=== PATIENT | male | born 1960 | race Caucasian/White ===

== ENCOUNTER 2019-04-03 05:14 | Inpatient (IN) | payer OTHER ==
[~2019-04-03] VITALS: Ht 185.4 cm; Wt 95.0 kg
[2019-04-03 13:08] VITALS: Ht 185.4 cm; Wt 95.0 kg
[2019-04-03 13:27] VITALS: BP 130/76; PULSE 73; RESP 20
[2019-04-03] MEDS ORDERED: morphine 2 MG INJ IV STA (16:13)
[2019-04-03] MEDS ORDERED: DOCUSATE SODIUM 100 MG CAP PO PRN (17:00)
[2019-04-03] MEDS ORDERED: HYDROCODONE/APAP (5/325) TAB PO PRN (17:00)
[2019-04-03] MEDS ORDERED: NACL 0.9% 3 ML SYG IV SCH (17:00)
[2019-04-03] MEDS ORDERED: ACETAMINOPHEN 325 MG TAB PO PRN (17:00)
[2019-04-03] MEDS ORDERED: ZOLPIDEM 5 MG TAB PO PRN (17:00)
[2019-04-03] MEDS ORDERED: ONDANSETRON 4 MG INJ IV PRN (17:00)
[2019-04-03] MEDS ORDERED: morphine 2 MG INJ IV PRN (17:00)
--- NOTE | 2019-04-03 17:04 | HP ---
Date/Time of Note Date/Time of Note DATE: 04/03/19 TIME: 17:01 Assessment/Plan VTE Prophylaxis Pharmacological prophylaxis: NA/contraindicated Pharm contraindication: low risk/ambulating Lines/Catheters IV C[facility]ter Type [facility]from [facility] Saline Lock Assessment/Plan Hospital Course 1. Nephrolithiasis CT abdomen outside hospital showed a 5 mm stone at the right UVJ Symptoms have currently improved with conservative care Continue IV fluids and have added Flomax Urology consultation obtained Follow-up on KUB 2. Leukocytosis likely secondary to UTI Recheck UA Rocephin IV Prophylaxis: Ambulation HPI/ROS Admit Date/Time Admit Date/Time Apr 03, 2019 at 12:51 Hx of Present Illness Patient is a 50-year-old male with no past medical history presents to an outside hospital with 1 day of right flank pain with nausea and vomiting. Patient denies having had such symptoms in the past, patient presented to his PCP and was given an antibiotic for possible gastroenteritis. Patient symptoms persisted and he went to an outside ER where CT abdomen revealed a 5 mm stone in the right UVJ as well as leukocytosis and positive blood in the UA. Patient was transferred due to capitation, currently his pain has reportedly improved and has no other complaints. Patient denies a prior history of nephrolithiasis. ROS Constitutional: no complaints, improved Eyes: no complaints ENT: no complaints Respiratory: no complaints Cardiovascular: no complaints Gastrointestinal: no complaints Genitourinary: flank pain Musculoskeletal: no complaints Skin: no complaints Neurologic: no complaints Endocrine: no complaints Lymphatic: no complaints Psychological: no complaints, nl mood/affect Immunologic: no complaints PMH/Family/Social Past Medical History Medical History: no pertinent history Coded Allergies: No Known Allergies (Verified Allergy, Unknown, 04/03/19) Past Surgical History Bilateral inguinal hernia repairs Family History Significant Family History: no pertinent family hx Social History Alcohol Use: rarely Smoking Status: Never smoker Drug Use: none Exam/Review of Systems Vital Signs Vitals Vital Signs Date Temp Pulse Resp B/P (MAP) Pulse Ox O2 O2 Flow FiO2 Time Delivery Rate 04/03/19 98.5 73 20 130/76 98 13:27 (94) Exam Constitutional: alert, oriented Respiratory: clear to auscultation Cardiovascular: regular rate and rhythm Gastrointestinal: soft; No distended Musculoskeletal: nl extremities to inspection TRINA BECKETT Apr 03, 2019 17:04
[2019-04-03] MEDS: SOD CHLORIDE 0.9% 1,000 ML IV SCH (17:46)
[2019-04-03] MEDS: CEFTRIAXONE 1 GM/50 ML (PMX) 50 ML IVPB SCH (17:46)
[2019-04-03 20:56] VITALS: BP 125/76; PULSE 62; RESP 20
[2019-04-03] MEDS ORDERED: TAMSULOSIN (SR) 0.4 MG CAP PO SCH (21:00)
[2019-04-04] VITALS: BP 120/75; PULSE 72; RESP 18
[2019-04-04] MEDS: SOD CHLORIDE 0.9% 1,000 ML IV SCH ×3 (02:58→13:47)
[2019-04-04 07:36] VITALS: BP 118/71; PULSE 63; RESP 20
--- NOTE | 2019-04-04 11:26 | PN ---
Date/Time of Note Date/Time of Note DATE: 04/04/19 TIME: 11:24 Assessment/Plan VTE Prophylaxis Risk score (from Nsg)>0 risk: 1 Pharmacological prophylaxis: NA/contraindicated Pharm contraindication: low risk/ambulating Lines/Catheters IV Catheter Type (from [facility]): Peripheral IV Assessment/Plan Hospital Course 1. Nephrolithiasis CT abdomen outside hospital showed a 5 mm stone at the right UVJ Patient with persistent pain Continue IV fluids and Flomax Urology consultation obtained KUB shows tiny 3 mm calcification in the right pelvis 2. Leukocytosis likely secondary to UTI-resolved Recheck UA Rocephin IV Prophylaxis: Ambulation DC planning: Continue management as per above, follow-up on urology r ecommendations Result Diagram: 04/04/19 0511 04/04/19 0511 Results 24hrs Laboratory Tests Test 04/04/19 05:11 White Blood Count 7.5 Red Blood Count 4.99 Hemoglobin 13.8 L Hematocrit 41.9 L Mean Corpuscular Volume 84.0 Mean Corpuscular Hemoglobin 27.7 L Mean Corpuscular Hemoglobin Concent 32.9 Red Cell Distribution Width 13.3 Platelet Count 258 Mean Platelet Volume 9.0 Immature Granulocytes % 0.400 Neutrophils % 64.8 Lymphocytes % 24.3 Monocytes % 9.6 Eosinophils % 0.8 Basophils % 0.1 Nucleated Red Blood Cells % 0.0 Immature Granulocytes # 0.030 Neutrophils # 4.9 Lymphocytes # 1.8 Monocytes # 0.7 Eosinophils # 0.1 Basophils # 0.0 Nucleated Red Blood Cells # 0.0 Sodium Level 143 Potassium Level 3.9 Chloride Level 108 Carbon Dioxide Level 30 Anion Gap 5 Blood Urea Nitrogen 16 Creatinine 0.97 Est Glomerular Filtrat Rate mL/min > 60 Glucose Level 106 Hemoglobin A1c 5.9 Calcium Level 8.5 Phosphorus Level 3.7 Magnesium Level 2.3 Subjective 24 Hr Interval Summary Genitourinary: flank pain Exam/Review of Systems Exam Vitals Vital Signs Date Temp Pulse Resp B/P (MAP) Pulse Ox O2 O2 Flow FiO2 Time Delivery Rate 04/04/19 97.7 63 20 118/71 98 07:36 (87) Intake and Output 04/03/19 04/03/19 04/04/19 1515:00 23:00 07:00 IntakeIntake Total 770 ml 1000 ml BalanceBalance 770 ml 1000 ml Constitutional: alert, oriented Respiratory: clear to auscultation Cardiovascular: regular rate and rhythm Gastrointestinal: soft; No distended Musculoskeletal: nl extremities to inspection Results Results 24hrs Laboratory Tests Test 04/04/19 05:11 White Blood Count 7.5 Red Blood Count 4.99 Hemoglobin 13.8 L Hematocrit 41.9 L Mean Corpuscular Volume 84.0 Mean Corpuscular Hemoglobin 27.7 L Mean Corpuscular Hemoglobin Concent 32.9 Red Cell Distribution Width 13.3 Platelet Count 258 Mean Platelet Volume 9.0 Immature Granulocytes % 0.400 Neutrophils % 64.8 Lymphocytes % 24.3 Monocytes % 9.6 Eosinophils % 0.8 Basophils % 0.1 Nucleated Red Blood Cells % 0.0 Immature Granulocytes # 0.030 Neutrophils # 4.9 Lymphocytes # 1.8 Monocytes # 0.7 Eosinophils # 0.1 Basophils # 0.0 Nucleated Red Blood Cells # 0.0 Sodium Level 143 Potassium Level 3.9 Chloride Level 108 Carbon Dioxide Level 30 Anion Gap 5 Blood Urea Nitrogen 16 Creatinine 0.97 Est Glomerular Filtrat Rate mL/min > 60 Glucose Level 106 Hemoglobin A1c 5.9 Calcium Level 8.5 Phosphorus Level 3.7 Magnesium Level 2.3 Medications Medication Current Medications Sodium Chloride 1,000 ml @ 100 mls/hr Q10H IV Last administered on 04/04/19at 04:33; Admin Dose 100 MLS/HR; Start 04/03/19 at 16:58 IV Flush (NS 3 ml) 3 ml PER PROTOCOL IV ; Start 04/03/19 at 17:00 Ondansetron HCl (Zofran Inj) 4 mg Q6H PRN IV NAUSEA/VOMITING; Start 04/03/19 at 17:00 Acetaminophen (Tylenol Tab) 650 mg Q6H PRN PO .PAIN 1-3 OR TEMP; Start 04/03/19 at 17:00 Acetaminophen/ Hydrocodone Bitart ([place] (5/325)) 1 tab Q6H PRN PO .MOD PAIN 4- 6; Start 04/03/19 at 17:00 Morphine Sulfate (morphine) 2 mg Q4H PRN IV .SEVERE PAIN 7-10 Last administered on 04/04/19at 00:00; Admin Dose 2 MG; Start 04/03/19 at 17:00 Docusate Sodium (Colace) 100 mg Q12H PRN PO .CONSTIPATION; Start 04/03/19 at 17:00 Zolpidem Tartrate (Ambien) 5 mg QHS PRN PO .INSOMNIA; Start 04/03/19 at 17:00 Ceftriaxone Sodium 50 ml @ 100 mls/hr Q24H IVPB Last administered on 04/03/19at 17:46; Admin Dose 100 MLS/HR; Start 04/03/19 at 17:00 Tamsulosin HCl (Flomax) 0.4 mg HS PO Last administered on 04/03/19at 21:01; Admin Dose 0.4 MG; Start 04/03/19 at 21:00 TRINA BECKETT Apr 04, 2019 11:26
[2019-04-04 14:33] VITALS: BP 125/78; PULSE 61; RESP 20
[2019-04-04] MEDS: CEFTRIAXONE 1 GM/50 ML (PMX) 50 ML IVPB SCH (16:32)
--- NOTE | 2019-04-04 18:52 | CONS ---
Assessment/Plan Assessment/Plan Hospital Course (Demo Recall) 58-year-old male presented to the emergency room of an outside hospital 2 days earlier with right flank pain associated with nausea and vomiting. He states he vomited blood once. He was diagnosed with a 5 mm stone at the right ureterovesical junction. He was transferred to [facility] because of his insurance. Presently the patient is comfortable and he did pass the stone about 2 hours earlier and since then he had no further pain. There is no prior history of kidney stone and there is no family history of kidney stones. The patient did pass the stone about 2 hours earlier and he is pain-free at the at the present. Therefore he may be discharged home and the stone was sent for stone analysis. Consultation Date/Type/Reason Admit Date/Time Apr 03, 2019 at 12:51 Date of Consultation: Apr 04, 2019 Type of Consult Urology Reason for Consultation Right distal ureteral stone Requesting Provider: TRINA BECKETT Date/Time of Note DATE: 04/04/19 TIME: 18:45 Hx of Present Illness 58-year-old male presented to the emergency room of an outside hospital 2 days earlier with right flank pain associated with nausea and vomiting. He states he vomited blood once. He was diagnosed with a 5 mm stone at the right ureterovesical junction. He was transferred to [facility] because of his insurance. Presently the patient is comfortable and he did pass the stone about 2 hours earlier and since then he had no further pain. There is no prior history of kidney stone and there is no family history of kidney stones. Constitutional: no complaints Eyes: no complaints ENT: no complaints Respiratory: no complaints; No wheezing Cardiovascular: no complaints Gastrointestinal: no complaints, nausea (On admission), vomiting (On admission) Genitourinary: flank pain (On admission but no longer) Musculoskeletal: no complaints Skin: no complaints Neurologic: no complaints Lymphatic: no complaints Past Medical History Medical History: no pertinent history Medications Current Medications Sodium Chloride 1,000 ml @ 100 mls/hr Q10H IV Last administered on 04/04/19at 13:47; Admin Dose 100 MLS/HR; Start 04/03/19 at 16:58 IV Flush (NS 3 ml) 3 ml PER PROTOCOL IV ; Start 04/03/19 at 17:00 Ondansetron HCl (Zofran Inj) 4 mg Q6H PRN IV NAUSEA/VOMITING; Start 04/03/19 at 17:00 Acetaminophen (Tylenol Tab) 650 mg Q6H PRN PO .PAIN 1-3 OR TEMP; Start 04/03/19 at 17:00 Acetaminophen/ Hydrocodone Bitart ([place] (5/325)) 1 tab Q6H PRN PO .MOD PAIN 4- 6; Start 04/03/19 at 17:00 Morphine Sulfate (morphine) 2 mg Q4H PRN IV .SEVERE PAIN 7-10 Last administered on 04/04/19at 00:00; Admin Dose 2 MG; Start 04/03/19 at 17:00 Docusate Sodium (Colace) 100 mg Q12H PRN PO .CONSTIPATION; Start 04/03/19 at 17:00 Zolpidem Tartrate (Ambien) 5 mg QHS PRN PO .INSOMNIA; Start 04/03/19 at 17:00 Ceftriaxone Sodium 50 ml @ 100 mls/hr Q24H IVPB Last administered on 04/04/19at 16:32; Admin Dose 100 MLS/HR; Start 04/03/19 at 17:00 Tamsulosin HCl (Flomax) 0.4 mg HS PO Last administered on 04/03/19at 21:01; Admin Dose 0.4 MG; Start 04/03/19 at 21:00 Allergies: Coded Allergies: No Known Allergies (Verified Allergy, Unknown, 04/03/19) Past Surgical History Past Surgical Hx: other (Bilateral inguinal hernia repair) Social History Alcohol Use: rarely Smoking Status: Never smoker Drug Use: none Exam/Review of Systems Exam Vitals Vital Signs Date Temp Pulse Resp B/P (MAP) Pulse Ox O2 O2 Flow FiO2 Time Delivery Rate 04/04/19 98.2 61 20 125/78 97 14:33 (94) Intake and Output 04/03/19 04/03/19 04/04/19 1414:59 22:59 06:59 IntakeIntake Total 770 ml 1000 ml BalanceBalance 770 ml 1000 ml Constitutional: alert, oriented Psych: no complaints Head: normocephalic Eyes: nl conjunctiva ENMT: nl external ears & nose Neck: supple, non-tender Respiratory: normal air movement; No wheezing Cardiovascular: No jugular venous distention (JVD) Gastrointestinal: soft Genitourinary - Male: No CVA tenderness Musculoskeletal: nl extremities to inspection Extremities: No calf tenderness Neurological: nl mental status Results Result Diagram: 04/04/19 0511 04/04/19 0511 Results 24hrs Laboratory Tests Test 04/04/19 05:11 04/04/19 12:05 White Blood Count 7.5 Red Blood Count 4.99 Hemoglobin 13.8 L Hematocrit 41.9 L Mean Corpuscular Volume 84.0 Mean Corpuscular Hemoglobin 27.7 L Mean Corpuscular Hemoglobin Concent 32.9 Red Cell Distribution Width 13.3 Platelet Count 258 Mean Platelet Volume 9.0 Immature Granulocytes % 0.400 Neutrophils % 64.8 Lymphocytes % 24.3 Monocytes % 9.6 Eosinophils % 0.8 Basophils % 0.1 Nucleated Red Blood Cells % 0.0 Immature Granulocytes # 0.030 Neutrophils # 4.9 Lymphocytes # 1.8 Monocytes # 0.7 Eosinophils # 0.1 Basophils # 0.0 Nucleated Red Blood Cells # 0.0 Sodium Level 143 Potassium Level 3.9 Chloride Level 108 Carbon Dioxide Level 30 Anion Gap 5 Blood Urea Nitrogen 16 Creatinine 0.97 Est Glomerular Filtrat Rate mL/min > 60 Glucose Level 106 Hemoglobin A1c 5.9 Calcium Level 8.5 Phosphorus Level 3.7 Magnesium Level 2.3 Urine Color STRAW Urine Clarity CLEAR Urine pH 8.0 Urine Specific [place] 1.006 Urine Ketones NEGATIVE Urine Nitrite NEGATIVE Urine Bilirubin NEGATIVE Urine Urobilinogen NEGATIVE Urine Leukocyte Esterase NEGATIVE Urine Hemoglobin NEGATIVE Urine Glucose NEGATIVE Urine Total Protein NEGATIVE Medications Medication Current Medications Sodium Chloride 1,000 ml @ 100 mls/hr Q10H IV Last administered on 04/04/19at 13:47; Admin Dose 100 MLS/HR; Start 04/03/19 at 16:58 IV Flush (NS 3 ml) 3 ml PER PROTOCOL IV ; Start 04/03/19 at 17:00 Ondansetron HCl (Zofran Inj) 4 mg Q6H PRN IV NAUSEA/VOMITING; Start 04/03/19 at 17:00 Acetaminophen (Tylenol Tab) 650 mg Q6H PRN PO .PAIN 1-3 OR TEMP; Start 04/03/19 at 17:00 Acetaminophen/ Hydrocodone Bitart (B[place] (5/325)) 1 tab Q6H PRN PO .MOD PAIN 4- 6; Start 04/03/19 at 17:00 Morphine Sulfate (morphine) 2 mg Q4H PRN IV .SEVERE PAIN 7-10 Last administered on 04/04/19at 00:00; Admin Dose 2 MG; Start 04/03/19 at 17:00 Docusate Sodium (Colace) 100 mg Q12H PRN PO .CONSTIPATION; Start 04/03/19 at 17:00 Zolpidem Tartrate (Ambien) 5 mg QHS PRN PO .INSOMNIA; Start 04/03/19 at 17:00 Ceftriaxone Sodium 50 ml @ 100 mls/hr Q24H IVPB Last administered on 04/04/19at 16:32; Admin Dose 100 MLS/HR; Start 04/03/19 at 17:00 Tamsulosin HCl (Flomax) 0.4 mg HS PO Last administered on 04/03/19at 21:01; Admin Dose 0.4 MG; Start 04/03/19 at 21:00 DONNELL ASKEW MD Apr 04, 2019 18:52
--- NOTE | 2019-04-04 18:59 | PDOCDIS ---
Discharge Instructions CONDITION [id number] Patient Condition: [id number] Good HOME CARE INSTRUCTIONS: [id number] Diet Instructions: [id number] Regular ACTIVITY: [id number] Activity Restrictions: [id number] No Restrictions FOLLOW UP/APPOINTMENTS Follow-up Plan FOLLOW UP WITH YOUR PCP IN 1-2 WEEKS TRINA BECKETT Apr 04, 2019 18:59
--- NOTE | 2019-04-04 19:03 | DS ---
Date/Time of Note Date/Time of Note DATE: 04/04/19 TIME: 18:59 Discharge Summary Admission/Discharge Info Admit Date/Time Apr 03, 2019 at 12:51 Discharge Date/Time April 04, 2019 Discharge Diagnosis 1. Nephrolithiasis-resolved Pt has passed stone with no further pain CT abdomen outside hospital showed a 5 mm stone at the right UVJ s/p IV fluids and Flomax Urology consultation appreciated, no intervention required KUB shows tiny 3 mm calcification in the right pelvis 2. Leukocytosis likely secondary to UTI-resolved UA nl s/p Rocephin IV Patient Condition: Good Hospital Course Patient is a 50-year-old male with no past medical history presents to an outside hospital with 1 day of right flank pain with nausea and vomiting. Patient went to an outside ER where CT abdomen revealed a 5 mm stone in the right UVJ as well as leukocytosis and positive blood in the UA. Patient was transferred due to capitation, pt was treated conservatively and passed stone with resolution of pain, pt was cleared for DC per Urology, on the day of DC pt vitals, labs and PE were stable. Home Meds No Active Prescriptions or Reported Meds Follow-up Plan FOLLOW UP WITH YOUR PCP IN 1-2 WEEKS Primary Care Provider Care Physician No Primary Time spent on discharge: > 30 minutes TRINA BECKETT Apr 04, 2019 19:03
[2019-04-04 20:00] VITALS: BP 138/85; PULSE 60; RESP 18
== END 2019-04-04 21:10 | disposition home or self-care (01) | DRG 694 ==
LOC: 2NE 12:51
PROVIDERS: ADMIT Internal Medicine; ATTEND Internal Medicine
DX: N20.0 Calculus of kidney (principal); N39.0 Urinary tract infection, site not specified
CPT/HCPCS: 74018; 80048; 81003; 82355; 83036; 83735; 84100; 85025; J0696; J2270; J7030